=== PATIENT | male | born 1960 | race Caucasian/White ===

== ENCOUNTER 2017-01-20 11:32 | Emergency (ER) | payer OTHER ==
[~2017-01-20] VITALS: Ht 180.3 cm; Wt 113.4 kg
[~2017-01-20 11:32] MED LIST: CARDURA1 MG PO; KEFLEX500 MG PO; LISINOPRIL2.5 MG PO; PERCOCET 325 MG1 TA7 PO
[2017-01-20] MEDS ORDERED: NAPROSYN500 MG PO (13:05)
[2017-01-20] MEDS ORDERED: KEFLEX500 M1 PO (13:05)
== END 2017-01-20 13:45 | disposition home or self-care (01) ==
LOC: ED 11:32
DX: S61.411A Laceration without foreign body of right hand, initial encounter (principal); Z79.899 Other long term (current) drug therapy; X58.XXXA Exposure to other specified factors, initial encounter; Y93.89 Activity, other specified; Y92.89 Other specified places as the place of occurrence of the external cause; Y99.8 Other external cause status